=== PATIENT | female | born 1950 | race Caucasian/White ===

== ENCOUNTER → 2017-06-02 | Emergency (ER) | payer MEDICARE ==
[~2017-06-02] MED LIST: XYLOCAINE 1% HCL 20 ML MDV IJ ONE
--- NOTE | 2017-06-02 13:29 | ERPHSYRPT ---
- History of Present Illness Time Seen by Provider: 06/02/17 13:25 Source: patient Exam Limitations: no limitations Patient Subjective Stated Complaint: dog bite right hand Triage Nursing Assessment: pt to er c/o dog bite to right hand, pts dog got tangled in a wire and when she was trying to free the dog the dog bit her, V shape wound noted to right hand, small puncture wounds x2 to right upper arm Physician History: The patient is a right-handed 67-year-old female who was trying to extricate her dog from a wire fence in which she was caught, when her dog became scared, and bit her on her right hand and right arm. The dog is vaccinated for rabies. The patient has a up-to-date tetanus vaccination. She denies numbness or tingling. Her past medical history is significant for GERD, depression, hyperthyroidism, anxiety, COPD PD, and hypertension. Timing/Duration: today Quality: painful Severity: moderate Location: hands (right) Possible Causes: other (dog bite) Allergies/Adverse Reactions: No Known Drug Allergies Allergy (Unverified 06/02/17 12:53) Home Medications: Clonazepam 0.5 mg [Klonopin 0.5 MG] 06/02/17 [History] Escitalopram Oxalate 10 mg [Lexapro 10 MG] 06/02/17 [History] Methimazole [Tapazole] 06/02/17 [History] Mometasone/Formoterol [Dulera 100 Mcg/5 Mcg Inhaler] 06/02/17 [History] Omeprazole/Sodium Bicarbonate [Omeprazole-Bicarb 40-1,100 Cap] 06/02/17 [ History] Tiotropium [place] [Spiriva] 06/02/17 [History] Trazodone HCl 06/02/17 [History] Triamterene/Hydrochlorothiazid [Triamterene-Hctz 37.5-25 mg Tb] 06/02/17 [ History] Zolpidem Tartrate 10 mg [Ambien 10 MG] 06/02/17 [History] Hx Tetanus, Diphtheria Vaccination/Date Given: Yes Hx Influenza Vaccination/Date Given: Yes Hx Pneumococcal Vaccination/Date Given: No - Review of Systems Constitutional: No Fever, No Chills Eyes: No Symptoms Ears, Nose, & Throat: No Symptoms Respiratory: No Cough, No Dyspnea Cardiac: No Chest Pain, No Edema, No Syncope Abdominal/Gastrointestinal: No Abdominal Pain, No Nausea, No Vomiting, No Diarrhea Genitourinary Symptoms: No Dysuria Musculoskeletal: No Back Pain, No Neck Pain Skin: Other (laceration) Neurological: No Dizziness, No Focal Weakness, No Sensory Changes Psychological: No Symptoms Endocrine: No Symptoms Hematologic/Lymphatic: No Symptoms Immunological/Allergic: No Symptoms All Other Systems: Reviewed and Negative - Past Medical History Neurological History: Stroke ENT History: Cataracts Cardiac History: No Pertinent History Respiratory History: COPD Endocrine Medical History: Hyperthyroidism Musculoskeletal History: No Pertinent History GI Medical History: No Pertinent History History: No Pertinent History Psycho-Social History: No Pertinent History Female Reproductive Disorders: No Pertinent History - Past Surgical History Neuro Surgical History: No Pertinent History Cardiac: No Pertinent History Respiratory: No Pertinent History Gastrointestinal: No Pertinent History Genitourinary: No Pertinent History Musculoskeletal: No Pertinent History Female Surgical History: No Pertinent History - Social History Smoking Status: Current every day smoker How long have you smoked: 50 Exposure to second hand smoke: Yes Drug Use: none Patient Lives Alone: No - Female History Hx Now: No - Nursing Vital Signs Nursing Vital Signs: Initial Vital Signs Temperature 97.9 F 06/02/17 12:45 Pulse Rate 98 H 06/02/17 12:45 Respiratory Rate 20 06/02/17 12:45 Blood Pressure 141/83 06/02/17 12:45 O2 Sat by Pulse Oximetry 98 06/02/17 12:45 Pain Scale Pain Intensity 4 - Physical Exam General Appearance: no apparent distress, alert Eye Exam: PERRL/EOMI, eyes nml inspection Ears, Nose, Throat Exam: normal ENT inspection, pharynx normal, moist mucous membranes Neck Exam: normal inspection, non-tender, supple, full range of motion Respiratory Exam: normal breath sounds, lungs clear, No respiratory distress Cardiovascular Exam: regular rate/rhythm, normal heart sounds Gastrointestinal/Abdomen Exam: soft, mass, No tenderness Pelvic Exam: not done Rectal Exam: not done Back Exam: normal inspection, normal range of motion, No CVA tenderness, No vertebral tenderness Extremity Exam: normal inspection, normal range of motion Neurologic Exam: alert, oriented x 3, cooperative, normal mood/affect, sensation nml, No motor deficits Skin Exam: laceration (right hand. right arm) SpO2 Interpretation: normal SpO2: 98 Oxygen Delivery: Room Air Procedures - Laceration/Wound Repair Right Hand Wound Location: Right, hand Wound Length (cm): 5 Wound's Depth, Shape: flap Wound Explored: clean Irrigated: Yes Hibiclens Prep: Yes Anesthesia: local, 1% Lidocaine Volume Anesthetic (ccs): 10 Wound Repaired With: sutures Suture Size/Type: 5-0, nylon Number of Sutures: 9 Sterile Dressing Applied?: Yes Splint Applied?: No Sling Applied?: No Ordered Tests: Medication Summary Discontinued Medications Generic Name Dose Route Start Last Admin Trade Name Freq PRN Reason Stop Dose Admin Lidocaine HCl 10 ml 06/02/17 14:05 06/02/17 14:42 Xylocaine 1% Hcl 20 Ml Mdv IJ 06/02/17 14:06 10 ml STAT ONE Administration - Progress Progress: improved Counseled pt/family regarding: diagnosis, need for follow-up - Departure Time of Disposition: 14:53 Departure Disposition: Home Clinical Impression: Dog bite Condition: Stable Critical Care Time: No Referrals: MIRTA KWOK MD [Primary Care Provider] - Additional Instructions: You have a laceration on your right hand that was caused by a dog bite. The laceration was repaired using 9 stitches. Have the stitches removed by your primary medical doctor in 12-14 days. Take clindamycin 300 mg 3 times a day for 10 days. Take Tylenol and ibuprofen as needed. Prescriptions: Clindamycin HCl 1 cap PO TID #30 capsule
[2017-06-02 15:14] VITALS: BP 138/76; PULSE 96; O2SAT 97
== END ==
LOC: ED 12:35
PROC: 0HQFXZZ Repair Right Hand Skin, External Approach (ICD-10-PCS; principal; 2017-06-02)
DX: S61.451A Open bite of right hand, initial encounter (principal); W54.0XXA Bitten by dog, initial encounter; I10 Essential (primary) hypertension
CPT/HCPCS: 12002; 99283

== ENCOUNTER 2019-06-17 14:25 | Emergency (ER) | payer MEDICARE ==
[2019-06-17] MEDS ORDERED: Sodium Chloride 0.9% 1000 ML 1,000 ML IV STA (15:52)
[2019-06-17] MEDS ORDERED: Sodium Chloride 0.9% 1000 ML 1,000 ML ONE (16:09)
[2019-06-17 16:10] LABS: Absolute Neutrophil Ct (ANC) 3.21 (1.4-6.9); BASOPHIL % 0.2 % (0.0-0.4); Basophil (Absolute #) 0.01 (0-0.4); Eosinophil % 0.2 % (0.00-5.0); Eosinophil (Absolute #) 0.01 (0-0.5); Hematocrit 34.8 % (35-47); Hemoglobin 11.6 gm/dl (12.0-16.0); Lymphocyte (Absolute #) 0.94 (1.0-4.6); Lymphocytes % 18.4 % (24.0-44.0); Mean Cell Volume 85.5 fl (78-100); Mean Corpuscular Hemoglobin 28.5 pg (26-32); Mean Corpuscular Hgb Concent. 33.3 g/dl (32-36); Monocyte (Absolute #) 0.93 (0.0-1.3); Monocytes % 18.2 % (0.0-12.0); Platelet Count 465 K/mm3 (150-450); Red Blood Count 4.07 M/mm3 (4.1-5.4); Red Cell Distribution Width 14.6 % (11.5-14.0); White Blood Count 5.1 K/mm3 (4.0-10.5)
[2019-06-17 16:15] LABS: Appearance SLIGHTLY CLOUDY (CLEAR); Bacteria RARE /HPF (NEGATIVE); Bilirubin NEGATIVE (NEGATIVE); Blood LARGE Ery/ul (0-5); Epithelial Cells FEW /HPF (FEW); Glucose NEGATIVE (NEGATIVE); Ketones SMALL (NEGATIVE); Leukocyte Esterase NEGATIVE (NEGATIVE); Mucus SLIGHT /HPF (NEGATIVE); Nitrite NEGATIVE (NEGATIVE); Protein,Urine Dip 100 (Negative); RBC 51-100 /HPF (0-2); Specific Gravity 1.024 (1.005-1.025); Urobilinogen NEGATIVE mg/dL (0-1)
[2019-06-17 16:19] LABS: ALBUMIN 3.8 g/dL (3.5-5.0); ANION GAP 10.6 MEQ/L (5-15); BILIRUBIN,TOTAL 0.4 mg/dL (0.2-1.3); Calcium 8.3 mg/dL (8.4-10.2); Creatinine 1 1.25 mg/dL (0.52-1.04); Potassium 3.4 mmol/L (3.5-5.1); Total Protein 7.4 g/dL (6.3-8.2)
[2019-06-17 16:42] LABS: INFLUENZA A POSITIVE (NEGATIVE); INFLUENZA B NEGATIVE (NEGATIVE); RESPIRATORY SYNCTIAL VIRUS NEGATIVE (Negative)
--- NOTE | 2019-06-17 19:04 | ERPHSYRPT ---
- History of Present Illness Time Seen by Provider: 06/17/19 15:20 Source: patient Exam Limitations: no limitations Patient Subjective Stated Complaint: states has had cough and headache with body aches since last tuesday. prod cough of yellow sputum. states also has had chills. Triage Nursing Assessment: ambulated to room per self. skin w/d, color normal. resp nonlabored. occasional dry cough noted. Physician History: Patient is a 69-year-old female presents to our ED with complaints of myalgias frontal headache cough chills. Symptoms have been constant for 2 to 3 days. No chest pain or shortness of breath. No nausea vomiting or diaphoresis. Patient voices no other complaints at this time. Timing/Duration: day(s), improved Severity: moderate Associated Symptoms: denies symptoms, chills, No chest pain Allergies/Adverse Reactions: No Known Drug Allergies Allergy (Unverified 06/02/17 12:53) Home Medications: Clonazepam 0.5 mg [Klonopin 0.5 MG] 06/02/17 [History] Escitalopram Oxalate 10 mg [Lexapro 10 MG] 06/02/17 [History] Methimazole [Tapazole] 06/02/17 [History] Mometasone/Formoterol [Dulera 100 Mcg/5 Mcg Inhaler] 06/02/17 [History] Omeprazole/Sodium Bicarbonate [Omeprazole-Bicarb 40-1,100 Cap] 06/02/17 [ History] Tiotropium [place] [Spiriva] 06/02/17 [History] Trazodone HCl 06/02/17 [History] Triamterene/Hydrochlorothiazid [Triamterene-Hctz 37.5-25 mg Tb] 06/02/17 [ History] Zolpidem Tartrate 10 mg [Ambien 10 MG] 06/02/17 [History] Hx Tetanus, Diphtheria Vaccination/Date Given: Yes Hx Influenza Vaccination/Date Given: Yes Hx Pneumococcal Vaccination/Date Given: No - Review of Systems Constitutional: No Fever, No Chills Eyes: No Symptoms Ears, Nose, & Throat: No Symptoms Respiratory: Cough, No Dyspnea Cardiac: No Symptoms, No Chest Pain, No Edema, No Syncope Abdominal/Gastrointestinal: No Abdominal Pain, No Nausea, No Vomiting, No Diarrhea Genitourinary Symptoms: No Dysuria Musculoskeletal: No Back Pain, No Neck Pain Skin: No Symptoms, No Rash Neurological: No Dizziness, No Focal Weakness, No Sensory Changes Psychological: No Symptoms Endocrine: No Symptoms All Other Systems: Reviewed and Negative - Past Medical History Pertinent Past Medical History: Yes Neurological History: Stroke ENT History: Cataracts Cardiac History: No Pertinent History Respiratory History: COPD Endocrine Medical History: Hyperthyroidism Musculoskeletal History: No Pertinent History GI Medical History: No Pertinent History History: No Pertinent History Psycho-Social History: No Pertinent History Female Reproductive Disorders: No Pertinent History - Past Surgical History Past Surgical History: Yes Neuro Surgical History: No Pertinent History Cardiac: No Pertinent History Respiratory: No Pertinent History Gastrointestinal: Appendectomy, Cholecystectomy Genitourinary: No Pertinent History Musculoskeletal: No Pertinent History Female Surgical History: Hysterectomy Other Surgical History: thyroidectomy - Social History Smoking Status: Current every day smoker How long have you smoked: 60 Exposure to second hand smoke: Yes Drug Use: none Patient Lives Alone: No - Female History Hx Now: No - Nursing Vital Signs Nursing Vital Signs: Initial Vital Signs Temperature 98.5 F 06/17/19 15:09 Pulse Rate 55 L 06/17/19 15:09 Respiratory Rate 18 06/17/19 15:09 Blood Pressure 157/76 06/17/19 15:09 O2 Sat by Pulse Oximetry 95 06/17/19 15:09 Pain Scale Pain Intensity 3 - Physical Exam General Appearance: no apparent distress, alert, other (Patient sitting up in bed. She is conversant well-appearing and in no acute distress.) Eye Exam: PERRL/EOMI, eyes nml inspection Ears, Nose, Throat Exam: normal ENT inspection, TMs normal, pharynx normal, moist mucous membranes Neck Exam: normal inspection, non-tender, supple, full range of motion Respiratory Exam: normal breath sounds, lungs clear, No respiratory distress Cardiovascular Exam: regular rate/rhythm, normal heart sounds, normal peripheral pulses Gastrointestinal/Abdomen Exam: soft, normal bowel sounds, No tenderness, No mass Back Exam: normal inspection, normal range of motion, No CVA tenderness, No vertebral tenderness Extremity Exam: normal inspection, normal range of motion, pelvis stable Neurologic Exam: alert, oriented x 3, cooperative, normal mood/affect, nml cerebellar function, nml station & gait, sensation nml, No motor deficits Skin Exam: normal color, warm, dry, No rash Lymphatic Exam: No adenopathy SpO2 Interpretation: normal SpO2: 94 O2 Delivery: Room Air - Course Nursing assessment & vital signs reviewed: Yes - CT Exams Head CT Interpretation: Tele-radiologist Report (No acute intracranial findings. Age related chronic microvascular ischemic and involutional changes.) Ordered Tests: Active Orders 24 hr Category Date Time Status IV Insertion STAT Care 06/17/19 15:52 Active HEAD WITHOUT CONTRAST [CT] Stat Exams 06/17/19 17:08 Completed CBC W DIFF Stat Lab 06/17/19 16:05 Completed CMP Stat Lab 06/17/19 16:05 Completed UA W/RFX UR CULTURE Stat Lab 06/17/19 16:05 Completed Medication Summary Discontinued Medications Generic Name Dose Route Start Last Admin Trade Name Freq PRN Reason Stop Dose Admin Sodium Chloride 1,000 mls @ 999 mls/hr 06/17/19 15:52 06/17/19 17:12 Sodium Chloride 0.9% 1000 Ml IV 06/17/19 16:52 Infused .Q1H1M STA Infusion Sodium Chloride Confirm 06/17/19 16:09 Sodium Chloride 0.9% 1000 Ml Administered 06/17/19 16:10 Dose 1,000 mls @ ud .ROUTE .STK-MED ONE Lab/Rad Data: Laboratory Result Diagrams 06/17/19 16:05 06/17/19 16:05 Laboratory Results 06/17/19 06/17/19 06/17/19 Range/Units 16:05 16:05 16:05 WBC (4.0-10.5) K/mm3 RBC (4.1-5.4) M/mm3 Hgb (12.0-16.0) gm/dl Hct (35-47) % MCV (78-100) fl MCH (26-32) pg MCHC (32-36) g/dl RDW (11.5-14.0) % Plt Count (150-450) K/mm3 MPV (7.5-11.0) fl Gran % (36.0-66.0) % Eos # (Auto) (0-0.5) Absolute Lymphs (auto) (1.0-4.6) Absolute Monos (auto) (0.0-1.3) Lymphocytes % (24.0-44.0) % Monocytes % (0.0-12.0) % Eosinophils % (0.00-5.0) % Basophils % (0.0-0.4) % Absolute Granulocytes (1.4-6.9) Basophils # (0-0.4) Sodium 133 L (137-145) mmol/L Potassium 3.4 L (3.5-5.1) mmol/L Chloride 96 L (98-107) mmol/L Carbon Dioxide 30 (22-30) mmol/L Anion Gap 10.6 (5-15) MEQ/L BUN 21 H (7-17) mg/dL Creatinine 1.25 H (0.52-1.04) mg/dL Estimated GFR 44.9 ML/MIN Glucose 94 (74-106) mg/dL Calcium 8.3 L (8.4-10.2) mg/dL Total Bilirubin 0.40 (0.2-1.3) mg/dL AST 29 (14-36) U/L ALT 13 (0-35) U/L Alkaline Phosphatase 94 (38-126) U/L Serum Total Protein 7.4 (6.3-8.2) g/dL Albumin 3.8 (3.5-5.0) g/dL Urine Color YELLOW (YELLOW) Urine Appearance SLIGHTLY CLOUDY (CLEAR) Urine pH 6.0 (5-6) Ur Specific [place] 1.024 (1.005-1.025) Urine Protein 100 (Negative) Urine Ketones SMALL (NEGATIVE) Urine Blood LARGE (0-5) Yoni/ul Urine Nitrite NEGATIVE (NEGATIVE) Urine Bilirubin NEGATIVE (NEGATIVE) Urine Urobilinogen NEGATIVE (0-1) mg/dL Ur Leukocyte Esterase NEGATIVE (NEGATIVE) Urine WBC (Auto) 3-5 (0-5) /HPF Urine RBC (Auto) 51-100 (0-2) /HPF U Epithel Cells (Auto) FEW (FEW) /HPF Urine Bacteria (Auto) RARE (NEGATIVE) /HPF Urine Mucus (Auto) SLIGHT (NEGATIVE) /HPF Urine Culture Reflexed NO (NO) Urine Glucose NEGATIVE (NEGATIVE) mg/dL Influenza Type A Ag POSITIVE (NEGATIVE) Influenza Type B Ag NEGATIVE (NEGATIVE) RSV (PCR) NEGATIVE (Negative) 06/17/19 Range/Units 16:05 WBC 5.1 (4.0-10.5) K/mm3 RBC 4.07 L (4.1-5.4) M/mm3 Hgb 11.6 L (12.0-16.0) gm/dl Hct 34.8 L (35-47) % MCV 85.5 (78-100) fl MCH 28.5 (26-32) pg MCHC 33.3 (32-36) g/dl RDW 14.6 H (11.5-14.0) % Plt Count 465 H (150-450) K/mm3 MPV 9.0 (7.5-11.0) fl Gran % 63.0 (36.0-66.0) % Eos # (Auto) 0.01 (0-0.5) Absolute Lymphs (auto) 0.94 L (1.0-4.6) Absolute Monos (auto) 0.93 (0.0-1.3) Lymphocytes % 18.4 L (24.0-44.0) % Monocytes % 18.2 H (0.0-12.0) % Eosinophils % 0.2 (0.00-5.0) % Basophils % 0.2 (0.0-0.4) % Absolute Granulocytes 3.21 (1.4-6.9) Basophils # 0.01 (0-0.4) Sodium (137-145) mmol/L Potassium (3.5-5.1) mmol/L Chloride (98-107) mmol/L Carbon Dioxide (22-30) mmol/L Anion Gap (5-15) MEQ/L BUN (7-17) mg/dL Creatinine (0.52-1.04) mg/dL Estimated GFR ML/MIN Glucose (74-106) mg/dL Calcium (8.4-10.2) mg/dL Total Bilirubin (0.2-1.3) mg/dL AST (14-36) U/L ALT (0-35) U/L Alkaline Phosphatase (38-126) U/L Serum Total Protein (6.3-8.2) g/dL Albumin (3.5-5.0) g/dL Urine Color (YELLOW) Urine Appearance (CLEAR) Urine pH (5-6) Ur Specific [place] (1.005-1.025) Urine Protein (Negative) Urine Ketones (NEGATIVE) Urine Blood (0-5) Yoni/ul Urine Nitrite (NEGATIVE) Urine Bilirubin (NEGATIVE) Urine Urobilinogen (0-1) mg/dL Ur Leukocyte Esterase (NEGATIVE) Urine WBC (Auto) (0-5) /HPF Urine RBC (Auto) (0-2) /HPF U Epithel Cells (Auto) (FEW) /HPF Urine Bacteria (Auto) (NEGATIVE) /HPF Urine Mucus (Auto) (NEGATIVE) /HPF Urine Culture Reflexed (NO) Urine Glucose (NEGATIVE) mg/dL Influenza Type A Ag (NEGATIVE) Influenza Type B Ag (NEGATIVE) RSV (PCR) (Negative) - Progress Progress: improved Progress Note: 06/17/19 19:08 Patient reassessed. She feels much better. Vitals stable. Patient requesting discharge. Patient is fully positive. Tamiflu ordered. Patient requesting antibiotic. Doxycycline prescription transmitted. Counseled pt/family regarding: lab results, diagnosis, need for follow-up, rad results - Departure Departure Disposition: Home Clinical Impression: Influenza A, Hematuria, Myalgia Condition: Stable Critical Care Time: No Referrals: MIRTA KWOK MD [Primary Care Provider] - Instructions: Flu, Adult (DC) Additional Instructions: Discharge/Care Plan DEISY VALDOVINOS was seen on 06/17/19 in the Emergency Room. The patient was counseled regarding Diagnosis,Lab results, Imaging studies, need for follow up and when to return to the Emergency Room. Prescriptions given: Discharge Note I have spoken with the patient and/or caregivers. I have explained the patient' s condition, diagnosis and treatment plan based on the information available to me at this time. I have answered the patient's and/or caregiver's questions and addressed any concerns. The patient and/or caregivers have as good understanding of the patient's diagnosis, condition and treatment plan as can be expected at this point. The vital signs have been stable. The patient's condition is stable and appropriate for discharge from the emergency department. The patient will pursue further outpatient evaluation with the primary care physician or other designated or consulting physician as outlined in the discharge instructions. The patient and/or caregivers are agreeable to this plan of care and follow-up instructions have been explained in detail. The patient and/or caregivers have received these instruction. The patient/and or caregivers are aware that any significant change in condition or worsening of symptoms should prompt an immediate return to this or the closest emergency department or call 911. Prescriptions: Doxycycline Hyclate 100 mg [Vibramycin 100 MG] 100 mg PO BID #14 tab Oseltamivir 75 mg [Tamiflu 75MG Capsule] 75 mg PO BID #10 cap
[2019-06-17 19:13] VITALS: BP 139/76; PULSE 52
--- NOTE | 2019-06-17 21:45 | XRAY ---
Indication: Headache, fever, and flu symptoms. Multiple contiguous axial images obtained through the head without contrast. Comparison: None Normal appearing brain parenchyma, ventricles, and bony calvarium. Visualized paranasal sinuses and mastoid air cells are clear. Impression: Normal CT head without contrast exam. Comment: Preliminary interpretation was made by [facility]. No critical discrepancy.
[2019-06-18 06:45] VITALS: O2SAT 94
== END 2019-06-17 19:13 | disposition home or self-care (01) ==
LOC: ED 14:25
DX: J09.X2 Influenza due to identified novel influenza A virus with other respiratory manifestations (principal); R31.9 Hematuria, unspecified; M79.10 Myalgia, unspecified site; R51 Headache; Z79.899 Other long term (current) drug therapy; J44.9 Chronic obstructive pulmonary disease, unspecified; E05.90 Thyrotoxicosis, unspecified without thyrotoxic crisis or storm
CPT/HCPCS: 36000; 36415; 70450; 80053; 81001; 85025; 87631; 96360; 99284

== ENCOUNTER 2020-04-18 16:57 | Emergency (ER) | payer MEDICARE ==
--- NOTE | 2020-04-18 17:22 | ERPHSYRPT ---
- History of Present Illness Time Seen by Provider: 04/18/20 17:19 Source: patient Exam Limitations: no limitations Patient Subjective Stated Complaint: fall Triage Nursing Assessment: Patient brought back to ED via w/c and transferred self to bed. Patient A+O X3. Patient's skin pink, warm and dry. Patient complains of falling this am at 0600 while putting wood in her stove outside she slipped on icy concrete and landed on back and head. Patient complains of head and lower back pain 7/10. Laceration noted to back of head 5cm X 0.5cm. Physician History: Patient complains of falling this am at 0600 while putting wood in her stove outside she slipped on icy concrete and landed on back and head. Patient complains of head and lower back pain 7/10. Laceration noted to back of head 5cm X 0.5cm. Timing/Duration: today Severity: moderate (low back pain) Associated Symptoms: denies symptoms Allergies/Adverse Reactions: diazepam [From Valium] Allergy (Verified 04/18/20 17:09) Penicillins Allergy (Verified 04/18/20 17:09) Sulfa (Sulfonamide Antibiotics) Allergy (Verified 04/18/20 17:09) Home Medications: Clonazepam 0.5 mg [Klonopin 0.5 MG] 06/02/17 [History] Escitalopram Oxalate 10 mg [Lexapro 10 MG] 06/02/17 [History] Methimazole [Tapazole] 06/02/17 [History] Mometasone/Formoterol [Dulera 100 Mcg/5 Mcg Inhaler] 06/02/17 [History] Omeprazole/Sodium Bicarbonate [Omeprazole-Bicarb 40-1,100 Cap] 06/02/17 [History] Tiotropium Selmer [Spiriva] 06/02/17 [History] Trazodone HCl 06/02/17 [History] Triamterene/Hydrochlorothiazid [Triamterene-Hctz 37.5-25 mg Tb] 06/02/17 [History] Zolpidem Tartrate 10 mg [Ambien 10 MG] 06/02/17 [History] Hx Tetanus, Diphtheria Vaccination/Date Given: Yes Hx Influenza Vaccination/Date Given: Yes Hx Pneumococcal Vaccination/Date Given: No Immunizations Up to Date: Yes Travel Risk - International Travel Have you traveled outside of the country in past 3 weeks: No - Coronavirus Screening Are you exhibiting any of the following symptoms?: No Close contact with a COVID-19 positive Pt in past 14-21 Days: No - Review of Systems Constitutional: No Symptoms Eyes: No Symptoms Ears, Nose, & Throat: No Symptoms Respiratory: No Symptoms Cardiac: No Symptoms Abdominal/Gastrointestinal: No Symptoms Genitourinary Symptoms: No Symptoms Musculoskeletal: Back Pain, Fall Skin: No Symptoms, Other (scalp laceration occipital area) Neurological: No Symptoms Psychological: No Symptoms Endocrine: No Symptoms - Past Medical History Pertinent Past Medical History: Yes Neurological History: Stroke ENT History: Cataracts Cardiac History: No Pertinent History Respiratory History: COPD Endocrine Medical History: Hyperthyroidism Musculoskeletal History: No Pertinent History GI Medical History: No Pertinent History History: No Pertinent History Psycho-Social History: No Pertinent History Female Reproductive Disorders: No Pertinent History - Past Surgical History Past Surgical History: Yes Neuro Surgical History: No Pertinent History Cardiac: No Pertinent History Respiratory: No Pertinent History Gastrointestinal: Appendectomy, Cholecystectomy Genitourinary: No Pertinent History Musculoskeletal: No Pertinent History Female Surgical History: Hysterectomy Other Surgical History: thyroidectomy - Social History Smoking Status: Current every day smoker How long have you smoked: 60 Exposure to second hand smoke: Yes Drug Use: none Patient Lives Alone: No - Nursing Vital Signs Nursing Vital Signs: Initial Vital Signs Temperature 98.0 F 04/18/20 17:12 Pulse Rate 73 04/18/20 17:12 Respiratory Rate 18 04/18/20 17:12 Blood Pressure 136/75 04/18/20 17:12 O2 Sat by Pulse Oximetry 98 04/18/20 17:12 Pain Scale Pain Intensity 7 - Physical Exam General Appearance: no apparent distress Eye Exam: PERRL/EOMI Ears, Nose, Throat Exam: normal ENT inspection Neck Exam: normal inspection Respiratory Exam: normal breath sounds Cardiovascular Exam: regular rate/rhythm Gastrointestinal/Abdomen Exam: soft Pelvic Exam: not done Rectal Exam: deferred Back Exam: vertebral tenderness, decreased range of motion Extremity Exam: normal inspection Neurologic Exam: alert, oriented x 3, cooperative Skin Exam: normal color, laceration (occipital scalp area) SpO2: 98 Procedures - Laceration/Wound Repair Posterior Occipital Wound Location: head Wound Length (cm): 5 Wound's Depth, Shape: superficial Wound Explored: clean Irrigated: Yes Hibiclens Prep: Yes Wound Repaired With: Ej (11 ej) - Course Nursing assessment & vital signs reviewed: Yes - Radiology Exams L-Spine X-ray Interpretation: Reviewed by me, No Fracture, No Subluxation Ordered Tests: Active Orders 24 hr Category Date Time Status LUMBAR COMPLETE (MIN 4 VIEWS) Stat Exams 04/18/20 17:18 Taken - Progress Progress: improved, pain not gone completely Counseled pt/family regarding: diagnosis, need for follow-up, rad results - Departure Departure Disposition: Home Clinical Impression: Laceration of scalp without complication Qualifiers: Encounter type: initial encounter Qualified Code(s): S01.01XA - Laceration without foreign body of scalp, initial encounter Sacral contusion Qualifiers: Encounter type: initial encounter Qualified Code(s): S30.0XXA - Contusion of lower back and pelvis, initial encounter Fall due to ice or snow Qualifiers: Encounter type: initial encounter Qualified Code(s): W00.9XXA - Unspecified fall due to ice and snow, initial encounter Condition: Stable Critical Care Time: No Referrals: MIRTA KWOK MD [Primary Care Provider] - Follow Up with PCP (10 days for ej removal) Instructions: Preventing Falls, Contusion (DC) Additional Instructions: Ej removal in 10 days DEISY VALDOVINOS was seen on 04/18/20 n the Emergency Room. At that time you were treated for an emergent condition, during your visit Laboratory, Radiology and/or other procedures may have been ordered. It is very important that you follow-up with your Primary Care Physician MIRTA KWOK within the next 24-48 hours to review your Emergency Room visit and the final results of testing that was ordered. Some test results such as Urine Cultures, Blood Cultures, and other cultures if ordered will not be finalized for 24-48 hours. If you do not have a Primary Care Provider please call the medical records department at [phone] ext [phone] to obtain a copy of your results or you may sign into our patient portal to obtain these results by visiting us @ [email or web address] and completing the following steps: 1. Click on the Patient Portal link 2. Click the Patient Self Enrollment Link to complete the enrollment form and entering your 3. Once the enrollment form is completed you will receive an email with a temporary ID and password at the email address you provided. 4. Next choose a user name and password. Your user name must be at least 4 characters long and your password must be at least 4 characters long. 5. Choose a security question from the list and provide your answer to the question. If you already have signed into the Health Portal you may access your Health Care Information 08/11 by the following steps: 1. Login to our website @ [email or web address] 2. Enter your original user name and password. FAQS The [facility] Health Portal is an online tool that contains your Lab Results, Radiology Reports, Visit History, Discharge Instructions and Health Summary Lab and Radiology Results will not be available for 72 hours on the portal. The Portal is a secure site, passwords are encryted and URLs are re-written so they cannot be copied and pasted. You and authorized family members are the only ones who can access your Portal. Also there is a timeout feature that protects your information if you leave the Portal page open. If you have technical difficulty please use the Contact Us link on the page this will allow you to submit any questions you have regarding the Portal or you may contact the Medical Record Department at [phone] ext [phone].
[2020-04-18 18:17] VITALS: BP 137/82; PULSE 64; O2SAT 99
--- NOTE | 2020-04-18 18:17 | XRAY ---
Indication: Pain following fall. Comparison: None 5 view lumbar spine demonstrates 5 lumbar vertebral segments in normal alignment with vertebral body heights/disc spaces maintained. Incidental bilateral L5-S1 degenerative facet hypertrophy, pelvic phleboliths, cholecystectomy clips, and right lung base calcified granuloma. No other bony, articular, or soft tissue abnormalities.
== END 2020-04-18 18:18 | disposition home or self-care (01) ==
LOC: ED 16:57
DX: R51.9 Headache, unspecified (principal); M54.5 Low back pain; S01.01XA Laceration without foreign body of scalp, initial encounter; S30.0XXA Contusion of lower back and pelvis, initial encounter; W00.0XXA Fall on same level due to ice and snow, initial encounter; Z79.899 Other long term (current) drug therapy
CPT/HCPCS: 12002; 72110; 99283

== ENCOUNTER 2022-12-08 09:28 | Day surgery (SDC) | payer MEDICARE ==
[2022-12-08] MEDS ORDERED: LIDOCAINE HCL 2% 100 MG/5 ML IJ ONE (09:29)
[2022-12-08] MEDS ORDERED: DIPRIVAN 200 MG/20 ML IV ONE (11:18)
--- NOTE | 2022-12-08 12:43 | XRAY ---
Indication: Bilateral L4-S1 MBB. Intraoperative fluoroscopy provided for 6 seconds. Single digital spot image submitted for interpretation demonstrates posterior needle tips projecting over the expected left and right L4-S1 nerve roots. Correlate with intraoperative findings/report.
--- NOTE | 2022-12-08 13:02 | XRAY ---
6 seconds of fluoroscopy was used in surgery for a bilateral L4-S1 MBB.
[2022-12-08] MEDS ORDERED: Lactated Ringers 1,000 ML IV ONE (13:36)
== END 2022-12-08 11:46 | disposition home or self-care (01) ==
LOC: SDC-PAIN 09:28
PROVIDERS: ATTEND Psychiatry & Neurology Pain Medicine
DX: M47.816 Spondylosis without myelopathy or radiculopathy, lumbar region (principal); E11.9 Type 2 diabetes mellitus without complications; Z79.899 Other long term (current) drug therapy
CPT/HCPCS: 64493; 64494; 72020; 77002; 82947; J2704

== ENCOUNTER 2023-02-02 08:27 | Day surgery (SDC) | payer MEDICARE ==
[2023-02-02] MEDS ORDERED: BUPIVACAINE 0.5% VIAL IJ ONE (08:28)
[2023-02-02] MEDS ORDERED: DIPRIVAN 200 MG/20 ML IV ONE (10:22)
--- NOTE | 2023-02-02 13:54 | XRAY ---
Indication: Bilateral L4-S1 MBB. Intraoperative fluoroscopy provided for 15 seconds. Single digital spot image submitted for interpretation demonstrates posterior needle tips projecting over the expected left and right L4-S1 nerve roots. Correlate with intraoperative findings/report.
--- NOTE | 2023-02-02 13:54 | XRAY ---
15 seconds of fluoroscopy was used in surgery for a bilateral L4-S1 MBB.
[2023-02-02] MEDS ORDERED: Lactated Ringers 1,000 ML IV ONE (15:00)
== END 2023-02-02 10:50 | disposition home or self-care (01) ==
LOC: SDC-PAIN 08:27
PROVIDERS: ATTEND Psychiatry & Neurology Pain Medicine
DX: M47.816 Spondylosis without myelopathy or radiculopathy, lumbar region (principal); E11.9 Type 2 diabetes mellitus without complications; Z79.899 Other long term (current) drug therapy
CPT/HCPCS: 64493; 64494; 72020; 77002; 82947; J2704

== ENCOUNTER 2023-03-12 21:04 | Emergency (ER) | payer MEDICARE ==
[2023-03-12 21:14] VITALS: TEMP 98.5
[2023-03-12] MEDS ORDERED: DELTASONE 20 MG PO ONE (21:26)
--- NOTE | 2023-03-12 21:26 | ERPHSYRPT ---
- History of Present Illness Time Seen by Provider: 03/12/23 21:17 Source: patient, other (caregiver) Exam Limitations: no limitations Physician History: pt has many allergies to detergents and wore socks from another person then broke out on feet Tuesday and rest of body a few days ago. No SOBreath No trouble swallowing. Maculopapular rash diffuse without Hives or urticaria. Beena Diet OK No N or V. No fever. No cough No CP No Abd pain. Eyes itching, NOrmal 20/20 vision bilaterally and sclera are clear. some rash both eye areas. Chest clear without wheezes or strider. Pharynx clear without swelling. Discussed risks/benefits or additional testing and antihist/steroids freddie pt and she wishes to proceed - prev beena well by Hx. No headache, dizziness, CP, SOBreath Abd pain or neuro or other BP symptoms. Timing/Duration: day(s) Quality: itchy Severity: moderate Location: generalized Possible Causes: exposure to allergen Modifying Factors: Improves With: scratching Associated Symptoms: denies symptoms, rash, No difficulty breathing, No fever, No flushing, No hives Allergies/Adverse Reactions: diazepam [From Valium] Allergy (Verified 03/12/23 21:11) Penicillins Allergy (Verified 03/12/23 21:11) Sulfa (Sulfonamide Antibiotics) Allergy (Verified 03/12/23 21:11) Home Medications: Alendronate Sodium 70 mg [Fosamax 70 MG] 1 tablet PO DAILY 03/12/23 [History] Atorvastatin Calcium 1 tablet PO DAILY 03/12/23 [History] Ferrous Fumarate [Ferretts] 1 tablet PO DAILY 03/12/23 [History] Hydrocodone/Acetaminophen [Hydrocodone-Acetamin 10-325 mg] 1 tablet PO DAILY PRN PRN 03/12/23 [History] Isosorbide Mononitrate 30 mg [Imdur 30 MG] 1 tablet PO DAILY 03/12/23 [History] Levothyroxine Sodium 100 Mcg [Synthroid 100 Mcg] 1 tablet PO DAILY 03/12/23 [History] Omeprazole 1 cap PO DAILY 03/12/23 [History] Trazodone HCl 1 tablet PO HS 03/12/23 [History] Triamterene/Hydrochlorothiazid [Triamterene-Hctz 37.5-25 mg Tb] 1 tablet PO DAILY 03/12/23 [History] Hx Tetanus, Diphtheria Vaccination/Date Given: Yes Hx Influenza Vaccination/Date Given: Yes Hx Pneumococcal Vaccination/Date Given: No - Review of Systems Constitutional: No Fever, No Chills Eyes: No Symptoms Ears, Nose, & Throat: No Symptoms Respiratory: No Cough, No Dyspnea Cardiac: No Chest Pain, No Edema, No Syncope Abdominal/Gastrointestinal: No Abdominal Pain, No Nausea, No Vomiting, No Diarrhea Genitourinary Symptoms: No Dysuria Musculoskeletal: No Back Pain, No Neck Pain Skin: Pruritis, Rash, No Cellulitis Neurological: No Dizziness, No Focal Weakness, No Sensory Changes Psychological: No Symptoms Endocrine: No Symptoms Hematologic/Lymphatic: No Symptoms Immunological/Allergic: No Symptoms All Other Systems: Reviewed and Negative - Past Medical History Pertinent Past Medical History: Yes Neurological History: TIA ENT History: Cataracts Cardiac History: No Pertinent History Respiratory History: COPD Endocrine Medical History: Hypothyroidism Musculoskeletal History: Arthritis, Osteoarthritis GI Medical History: No Pertinent History History: No Pertinent History Psycho-Social History: No Pertinent History Female Reproductive Disorders: No Pertinent History Other Medical History: Pt is to have x-rays 06/04/20 to monitor back. - Past Surgical History Past Surgical History: Yes Neuro Surgical History: No Pertinent History Cardiac: No Pertinent History Respiratory: No Pertinent History Gastrointestinal: Appendectomy, Cholecystectomy Genitourinary: No Pertinent History Musculoskeletal: No Pertinent History Female Surgical History: Hysterectomy Other Surgical History: thyroidectomy - Social History Smoking Status: Current every day smoker How long have you smoked: 60 Exposure to second hand smoke: Yes Drug Use: none Patient Lives Alone: No - Nursing Vital Signs Nursing Vital Signs: Initial Vital Signs Temperature 98.5 F 03/12/23 21:12 Pulse Rate 70 03/12/23 21:12 Respiratory Rate 18 03/12/23 21:12 Blood Pressure 180/78 03/12/23 21:12 O2 Sat by Pulse Oximetry 97 03/12/23 21:12 Pain Scale Pain Intensity 0 - Physical Exam General Appearance: no apparent distress, alert Eye Exam: PERRL/EOMI, eyes nml inspection Ears, Nose, Throat Exam: normal ENT inspection, pharynx normal, moist mucous membranes, No pharyngeal erythema Neck Exam: normal inspection, non-tender, supple, full range of motion Respiratory Exam: normal breath sounds, lungs clear, No respiratory distress Cardiovascular Exam: regular rate/rhythm, normal heart sounds Gastrointestinal/Abdomen Exam: soft, mass, No tenderness Pelvic Exam: deferred Rectal Exam: deferred Back Exam: normal inspection, normal range of motion, No CVA tenderness, No vertebral tenderness Extremity Exam: normal inspection, normal range of motion Neurologic Exam: alert, oriented x 3, cooperative, normal mood/affect, sensation nml, No motor deficits Skin Exam: normal color, warm, dry, rash SpO2 Interpretation: normal SpO2: 97 O2 Delivery: Room Air - Course Nursing assessment & vital signs reviewed: Yes - Progress Progress: improved, re-examined Counseled pt/family regarding: diagnosis, need for follow-up Medical Desision Making - Discussion of managment Reviewed:: Need for additional workup Agreed on:: Treatment plan, need for follow-up - Diagnostic Testing Diagnostic test were ordered, analyzed, and reviewed by me: No - Risk of complications The pt has a mod risk of morbidity or mortality based on: Need for prescription drug management - Departure Departure Disposition: Home Clinical Impression: allergy Skin reaction Condition: Good Critical Care Time: No Referrals: MIRTA KWOK MD [Primary Care Provider] - Follow up/PCP as directed Instructions: Skin Rash (DC), Contact Dermatitis (DC) Additional Instructions: get rid of the socks. Followup with your DrDenae this week. Return meantime if not improving, short of breath, Fever, difficulties swallowing or any other concerns. Followup with your DrDenae to adjust blood pressure treatment, as this was a little elevated. return meantime if any symptoms. Prescriptions: Promethazine HCl 25 mg [Phenergan 25 mg] 25 mg PO Q6HPRN PRN #20 tablet PRN Reason: Itching Methylprednisolone Packet [Medrol Dosepack] 4 mg PO UD #30 packet
[2023-03-12] MEDS ORDERED: BENADRYL 50 MG/ML IM ONE (21:27)
[2023-03-12] MEDS ORDERED: BENADRYL 50 MG/ML ONE (21:40)
[2023-03-12] MEDS ORDERED: DELTASONE 20 MG ONE (21:40)
[2023-03-12 22:01] VITALS: PULSE 59
[2023-03-12 22:09] VITALS: BP 143/65; RESP 15; O2SAT 97
== END 2023-03-12 22:20 | disposition home or self-care (01) ==
LOC: ED 21:04
DX: L23.9 Allergic contact dermatitis, unspecified cause (principal); Z79.52 Long term (current) use of systemic steroids; Z79.891 Long term (current) use of opiate analgesic; Z79.899 Other long term (current) drug therapy; Z72.0 Tobacco use
CPT/HCPCS: 96372; 99283; J1200; A9270-GY

== ENCOUNTER 2023-03-23 09:25 | Day surgery (SDC) | payer MEDICARE ==
[2023-03-23] MEDS ORDERED: BUPIVACAINE 0.5% VIAL IJ ONE (09:26)
[2023-03-23] MEDS ORDERED: XYLOCAINE-MPF 1% 5ML SDV IJ ONE (09:26)
[2023-03-23] MEDS ORDERED: Depo-Medrol 40 MG/ML IM ONE (09:26)
[2023-03-23] MEDS ORDERED: DIPRIVAN 200 MG/20 ML IV ONE (12:20)
--- NOTE | 2023-03-23 14:05 | XRAY ---
Indication: Right L4-S1 RFA. Intraoperative fluoroscopy provided for 20 seconds. 5 digital spot images submitted for interpretation demonstrates posterior needle tips projecting over the expected right L4-S1 nerve roots. Correlate with intraoperative findings/report.
[2023-03-23] MEDS ORDERED: Lactated Ringers 1,000 ML IV ONE (15:01)
--- NOTE | 2023-03-23 15:06 | XRAY ---
20 seconds of fluoroscopy was used in surgery for a right L4-S1 RFA.
== END 2023-03-23 12:45 | disposition home or self-care (01) ==
LOC: SDC-PAIN 09:25
PROVIDERS: ATTEND Psychiatry & Neurology Pain Medicine
DX: M47.816 Spondylosis without myelopathy or radiculopathy, lumbar region (principal); E11.9 Type 2 diabetes mellitus without complications; Z79.899 Other long term (current) drug therapy
CPT/HCPCS: 64635; 64636; 72100; 77002; 99100; J1030; J2704

== ENCOUNTER 2023-03-30 09:33 | Day surgery (SDC) | payer MEDICARE ==
[2023-03-30] MEDS ORDERED: BUPIVACAINE 0.5% VIAL IJ ONE (09:34)
[2023-03-30] MEDS ORDERED: XYLOCAINE-MPF 1% 5ML SDV IJ ONE (09:34)
[2023-03-30] MEDS ORDERED: Depo-Medrol 40 MG/ML IM ONE (09:34)
[2023-03-30] MEDS ORDERED: DIPRIVAN 200 MG/20 ML IV ONE (12:08)
--- NOTE | 2023-03-30 13:08 | XRAY ---
Indication: Left L4-S1 RFA. Intraoperative fluoroscopy provided for 22 seconds. 3 digital spot image submitted for interpretation demonstrates posterior new tips projecting over the expected left L4-S1 nerve roots. Correlate with intraoperative findings/report.
--- NOTE | 2023-03-30 13:18 | XRAY ---
22 seconds of fluoroscopy was used in surgery for a left L4-S1 RFA.
[2023-03-30] MEDS ORDERED: Lactated Ringers 1,000 ML IV ONE (15:32)
== END 2023-03-30 12:31 | disposition home or self-care (01) ==
LOC: SDC-PAIN 09:33
PROVIDERS: ATTEND Psychiatry & Neurology Pain Medicine
DX: M47.817 Spondylosis without myelopathy or radiculopathy, lumbosacral region (principal); E11.9 Type 2 diabetes mellitus without complications; Z79.899 Other long term (current) drug therapy
CPT/HCPCS: 64635; 64636; 72100; 77002; 82947; 99100; J1030; J2704